=== PATIENT | male | born 1990 | race Caucasian/White ===

== ENCOUNTER 2018-10-30 17:13 | Emergency (ER) | payer MEDICAID, OTHER ==
[~2018-10-30 17:13] MED LIST: CODE118S5 PO; [UNRECOGNIZED DRUG - CODE] PO
--- NOTE | 2018-10-30 17:18 | ER Report ---
History and Physical Time Seen By MD: 17:18 HPI/ROS CHIEF COMPLAINT: Abdominal pain HISTORY OF PRESENT ILLNESS: This is a 28-year-old male presents to emergency room for abdominal pain. Patient states that last night after eating about half a pizza developed right-sided abdominal pain, took some ibuprofen and went to bed, woke up this morning with a little bit of discomfort in the right upper quadrant, seemed to improve through the morning hour after eating pizza again for lunch she had severe right upper quadrant pain presents with localized right upper quadrant pain. No dysuria. No fevers or chills. No nausea or vomiting. No chest pain or shortness breath. REVIEW OF SYSTEMS: Constitutional: No fever, no chills. Eyes: No discharge. ENT: No sore throat. Cardiovascular: No chest pain, no palpitations. Respiratory: No cough, no shortness of breath. Gastrointestinal: As above. Genitourinary: No hematuria. Musculoskeletal: No back pain. Skin: No rashes. Neurological: No headache. Allergies: Coded Allergies: lamotrigine (Verified Allergy, Unknown, rash, 11/10/16) Home Meds Active Scripts Amoxicillin/Pot Clav 875-125 Mg Tab (AUGMENTIN 875-125 TABLET) 1 Each Tablet, 1 TAB PO Q12H for 7 Days, #13 TAB Prov:MOSES LIVE SENIOR TELECOMMUNICATIONS TECHNICIAN-BC 10/30/18 Codeine/Promethazine Hcl (PROMETHAZINE-CODEINE SYRUP) 5 Ml Syrup, 10 ML PO Q6H for cough, #240 ML 0 Refills Prov:TEJA LR STRATEGIC INTELLIGENCE OFFICER 11/10/16 Reported Medications Levetiracetam (KEPPRA XR) 750 Mg Tab.er.24h, 1500 MG PO QDAY, TAB 04/26/16 Past Medical/Surgical History The patient has a past medical and surgical history of seizures. Reviewed Nurses Notes: Yes Hx Substance Use Disorder: No Hx Alcohol Use: No Constitutional Vital Sign - Last 24 Hours 10/30/18 10/30/18 10/30/18 10/30/18 17:13 17:20 17:20 17:28 Temp 98.3 Pulse 62 78 62 Resp 16 B/P (MAP) 125/85 (98) 125/85 Pulse Ox 92 96 O2 Delivery Room Air 10/30/18 10/30/18 10/30/1819 17:30 17:43 17:58 18:00 Pulse 65 61 B/P (MAP) 121/93 (102) 115/85 (95) Pulse Ox 91 92 10/30/18 10/30/18 10/30/18 10/30/18 18:05 18:25 18:30 18:45 Pulse ??? 62 53 B/P (MAP) 122/98 (106) Pulse Ox 92 98 97 10/30/18 10/30/18 10/30/18 10/30/18 19:00 19:05 19:25 19:30 Pulse 52 50 B/P (MAP) 122/82 (95) 113/71 (85) Pulse Ox 97 10/30/18 10/30/18 10/30/18 10/30/18 19:45 20:00 20:00 20:20 Pulse 48 55 52 57 B/P (MAP) 115/82 (93) Pulse Ox 97 95 97 10/30/18 10/30/18 10/30/18 10/30/18 20:30 20:40 21:00 21:20 Pulse 57 56 54 B/P (MAP) 125/93 (104) 127/84 (98) Pulse Ox 99 91 94 10/30/18 10/30/18 21:30 21:40 Pulse 56 B/P (MAP) 119/70 (86) Intake and Output 10/30/18 10/30/18 10/31/18 15:00 23:00 07:00 Intake Total 1000 ml Balance 1000 ml Physical Exam General Appearance: The patient is alert, has no immediate need for airway protection and no signs of toxicity, anxious. Eyes: Pupils equal and round no pallor or injection. ENT, Mouth: Mucous membranes are moist. Respiratory: There are no retractions, lungs are clear to auscultation. Cardiovascular: Regular rate and rhythm, no murmurs, clicks or rubs. Gastrointestinal: Right upper quadrant diffusely tender along the costal margin, positive Wheatley's sign, all other quadrants negative. No rebound tenderness. Neurological: Alert and oriented 4. Moving all cavities. Following all commands. No focal deficits. Skin: Warm and dry, no rashes. Musculoskeletal: Neck is supple non tender. Extremities are nontender, nonswollen and have full range of motion. DIFFERENTIAL DIAGNOSIS: After history and physical exam differential diagnosis was considered for abdominal pain including but not limited to appendicitis, cholecystitis, pancreatitis, myocardial infarction, gastritis and urinary tract infection. Medical Decision Making Data Points Result Diagram: 10/30/18 1729 10/30/18 1729 Laboratory Hematology Test 10/30/18 17:16 10/30/18 17:29 10/30/18 20:37 Urine Color Yellow Urine Clarity Clear Urine pH 5.0 pH (4.8-9.5) Urine Specific [place] 1.025 Urine Protein Negative mg/dL (NEGATIVE) Urine Glucose (UA) Negative mg/dL (NEGATIVE) Urine Ketones Negative mg/dL (NEGATIVE) Urine Blood Negative (NEGATIVE) Urine Nitrite Negative (NEGATIVE) Urine Bilirubin Negative (NEGATIVE) Urine Urobilinogen Negative mg/dL (0.2-1.9) Urine Leukocyte Esterase Negative (NEGATIVE) Urine RBC <1 /HPF (0-2/HPF) Urine WBC 1 /HPF (0-5/HPF) Urine Squamous Epithelial Cells Many /LPF (</=FEW) Urine Bacteria Negative /HPF (NONE-FEW) Urine Mucus None /HPF (NONE-FEW) Red Blood Count 4.67 M/uL (4.00-5.60) Mean Corpuscular Volume 95.8 fL (80.0-96.0) Mean Corpuscular Hemoglobin 32.4 pg (26.0-33.0) Mean Corpuscular Hemoglobin Concent 33.8 g/dL (32.0-36.0) Red Cell Distribution Width 13.2 % (11.5-14.5) Mean Platelet Volume 8.4 fL (7.2-11.1) Neutrophils (%) (Auto) 58.9 % (39.4-72.5) Lymphocytes (%) (Auto) 30.4 % (17.6-49.6) Monocytes (%) (Auto) 9.0 % (4.1-12.4) Eosinophils (%) (Auto) 1.2 % (0.4-6.7) Basophils (%) (Auto) 0.5 % (0.3-1.4) Nucleated RBC Relative Count (auto) 0.0 /100WBC Neutrophils # (Auto) 4.6 K/uL (2.0-7.4) Lymphocytes # (Auto) 2.4 K/uL (1.3-3.6) Monocytes # (Auto) 0.7 K/uL (0.3-1.0) Eosinophils # (Auto) 0.1 K/uL (0.0-0.5) Basophils # (Auto) 0.0 K/uL (0.0-0.1) Nucleated RBC Absolute Count (auto) 0.00 K/uL Sodium Level 144 mmol/L (137-145) Potassium Level 4.1 mmol/L (3.5-5.0) Chloride Level 106 mmol/L (98-107) Carbon Dioxide Level 27 mmol/L (22-30) Blood Urea Nitrogen 18 mg/dl (9-21) Creatinine 1.40 mg/dl (0.66-1.25) Glomerular Filtration Rate Calc 59.5 Random Glucose 101 mg/dl (75-110) Calcium Level 9.0 mg/dl (8.4-10.2) Total Bilirubin 0.3 mg/dl (0.2-1.3) Aspartate Amino Transf (AST/SGOT) 29 U/L (0-35) Alanine Aminotransferase (ALT/SGPT) 30 U/L (0-56) Alkaline Phosphatase 55 U/L (0-126) Total Protein 7.6 g/dl (6.3-8.2) Albumin 4.6 g/dl (3.5-5.0) Lipase 59 U/L (23-300) Troponin I < 0.012 ng/ml Chemistry Test 10/30/18 17:16 10/30/18 17:29 10/30/18 20:37 Urine Color Yellow Urine Clarity Clear Urine pH 5.0 pH (4.8-9.5) Urine Specific [place] 1.025 Urine Protein Negative mg/dL (NEGATIVE) Urine Glucose (UA) Negative mg/dL (NEGATIVE) Urine Ketones Negative mg/dL (NEGATIVE) Urine Blood Negative (NEGATIVE) Urine Nitrite Negative (NEGATIVE) Urine Bilirubin Negative (NEGATIVE) Urine Urobilinogen Negative mg/dL (0.2-1.9) Urine Leukocyte Esterase Negative (NEGATIVE) Urine RBC <1 /HPF (0-2/HPF) Urine WBC 1 /HPF (0-5/HPF) Urine Squamous Epithelial Cells Many /LPF (</=FEW) Urine Bacteria Negative /HPF (NONE-FEW) Urine Mucus None /HPF (NONE-FEW) White Blood Count 7.9 k/uL (4.5-11.0) Red Blood Count 4.67 M/uL (4.00-5.60) Hemoglobin 15.1 g/dL (14.0-18.0) Hematocrit 44.7 % (42.0-52.0) Mean Corpuscular Volume 95.8 fL (80.0-96.0) Mean Corpuscular Hemoglobin 32.4 pg (26.0-33.0) Mean Corpuscular Hemoglobin Concent 33.8 g/dL (32.0-36.0) Red Cell Distribution Width 13.2 % (11.5-14.5) Platelet Count 246 K/uL (150-450) Mean Platelet Volume 8.4 fL (7.2-11.1) Neutrophils (%) (Auto) 58.9 % (39.4-72.5) Lymphocytes (%) (Auto) 30.4 % (17.6-49.6) Monocytes (%) (Auto) 9.0 % (4.1-12.4) Eosinophils (%) (Auto) 1.2 % (0.4-6.7) Basophils (%) (Auto) 0.5 % (0.3-1.4) Nucleated RBC Relative Count (auto) 0.0 /100WBC Neutrophils # (Auto) 4.6 K/uL (2.0-7.4) Lymphocytes # (Auto) 2.4 K/uL (1.3-3.6) Monocytes # (Auto) 0.7 K/uL (0.3-1.0) Eosinophils # (Auto) 0.1 K/uL (0.0-0.5) Basophils # (Auto) 0.0 K/uL (0.0-0.1) Nucleated RBC Absolute Count (auto) 0.00 K/uL Glomerular Filtration Rate Calc 59.5 Calcium Level 9.0 mg/dl (8.4-10.2) Total Bilirubin 0.3 mg/dl (0.2-1.3) Aspartate Amino Transf (AST/SGOT) 29 U/L (0-35) Alanine Aminotransferase (ALT/SGPT) 30 U/L (0-56) Alkaline Phosphatase 55 U/L (0-126) Total Protein 7.6 g/dl (6.3-8.2) Albumin 4.6 g/dl (3.5-5.0) Lipase 59 U/L (23-300) Troponin I < 0.012 ng/ml Urinalysis Test 10/30/18 17:16 Urine Color Yellow Urine Clarity Clear Urine pH 5.0 pH (4.8-9.5) Urine Specific Zo[place] 1.025 Urine Protein Negative mg/dL (NEGATIVE) Urine Glucose (UA) Negative mg/dL (NEGATIVE) Urine Ketones Negative mg/dL (NEGATIVE) Urine Blood Negative (NEGATIVE) Urine Nitrite Negative (NEGATIVE) Urine Bilirubin Negative (NEGATIVE) Urine Urobilinogen Negative mg/dL (0.2-1.9) Urine Leukocyte Esterase Negative (NEGATIVE) Urine RBC <1 /HPF (0-2/HPF) Urine WBC 1 /HPF (0-5/HPF) Urine Squamous Epithelial Cells Many /LPF (</=FEW) Urine Bacteria Negative /HPF (NONE-FEW) Urine Mucus None /HPF (NONE-FEW) EKG/Imaging EKG Interpretation 12 lead EKG: Time of EKG 2040. Rhythm: Sinus bradycardia, ventricular rate 56 bpm. [place]: normal QRS: normal ST segments: No ST depression or elevation identified. [ ] Imaging Location: [facility] Patient: Rakan Rios : 1990 Visit/Account:[id number] Date of Sevice: 10/30/2018 Right upper abdomen ultrasound. HISTORY: Right upper quadrant pain. COMPARISON: None. The liver measures 13.9 cm in sagittal length. The liver is free of focal defects. The surface of the liver is smooth. The portal vein is patent. No intra or extrahepatic biliary dilatation. The gallbladder is unremarkable. The sonographic Wheatley's sign is mildly positive. The pancreas is unremarkable. The right kidney is normal in size. No hydronephrosis. No ascites. Portions of the a bdominal aorta and inferior vena cava are obscured. The spleen and left kidney were not included. The common bile duct measures 2.6 mm in greatest AP diameter. The pancreatic tail is partially obscured by bowel gas. IMPRESSION: Essentially negative right upper abdomen. Report Dictated By: Bismark Shane MD at 10/30/2018 6:40 PM Report E-Signed By: Bismark Shane MD at 10/30/2018 6:42 PM WSN:[id number] Location: [facility] Patient: Rakan Rios : 1990 Visit/Account:[id number] Date of Sev: 10/30/2018 EXAMINATION: CT abdomen and pelvis with contrast COMPARISON: Ultrasound same day. HISTORY: Abdominal pain which worsens with eating. PROCEDURE: Multiplanar contrast enhanced CT of the abdomen and pelvis with 75 mL intravenous Isovue 370. One of the following dose optimization techniques was utilized in the performance of this exam: Automated exposure control; adjustment of the mA and/or kV according to the patient's size; or use of an iterative reconstruction technique. Specific details can be referenced in the facility's radiology CT exam operational policy. FINDINGS: Visualized thorax: Mild volume loss. No acute findings. Liver: Negative. Gallbladder and biliary system: Negative Spleen: Negative. Pancreas: Negative. Adrenal glands: Negative. Kidneys and bladder: No renal mass or evidence of an obstructive uropathy. Urinary bladder is unremarkable. Vessels: Within normal limits. Bowel and mesentery: Stomach and small bowel are within normal limits. Dilated 10 mm appendix but no evidence of appendiceal inflammation. Small amount of stool in the colon. No bowel or mesenteric inflammation. Pelvic organs: Negative. Lymph nodes: No adenopathy. Free air/free fluid: None. Abdominal wall and osseous structures: Tiny fat-containing umbilical hernia. Osseous structures are intact. IMPRESSION: 1. Dilated 10 mm appendix but no other evidence of appendiceal inflammation. Correlation with any clinical evidence of appendicitis is recommended with surgical consultation as clinically indicated. 2. No other findings of acute disease in the abdomen or pelvis. Results were discussed with MOSES LIVE at 10/30/2018 7:37 PM. Report Dictated By: Chuck Odom MD at 10/30/2018 7:23 PM Report E-Signed By: Chuck Odom MD at 10/30/2018 7:39 PM WSN:[id number] ED Course/Re-evaluation Clinical Indication for ER IV: Hydration, IV Access ED Course The patient was admitted to room. A history and physical were obtained. Differential diagnoses were considered. An IV was started. A CBC, CMP were obtained. Laboratory studies unremarkable, creatinine 1.40. A 1 L normal saline bolus was given. 4 mg IV Zofran, 4 mg IV morphine, 0.5 mg IV Dilaudid. Negative gallbladder ultrasound, no acute pathology noted on the CT of the abdomen and pelvis, there was as noted a 10 mm appendix. I did review the results with the patient, I did tell the patient I don't have a clear information for his postprandial discomfort as the gallbladder with some was negative, negative CT of the abdomen and pelvis. I did contact Dr. Spencer was not below, we discussed the case, the patient will follow-up tomorrow with Dr. Spencer, started on antibiotics night. As I was discussing this with the patient he did note that he's had right scapular pain as well, as the pain is in the right costal area I did further evaluate with an EKG which was sinus bradycardia otherwise unremarkable, and a troponin normal. 10/30/2018 8:28:59 pm I did speak with Dr. Spencer, the general surgeon on-call, and he will see the patient tomorrow in his clinic for follow-up, I will also start the patient on Augmentin. I did review this with the patient's, he did state that he did forget to tell me during the exam that he has also had right scapular pain, I did suggest an EKG and troponin. Decision to Disposition Date: Oct 30, 2018 Decision to Disposition Time: 21:36 Depart Departure Latest Vital Signs Vital Signs Date Time Temp Pulse Resp B/P (MAP) Pulse Ox O2 Delivery O2 Flow Rate FiO2 10/30/18 21:40 56 10/30/18 21:30 119/70 (86) 10/30/18 21:20 94 10/30/18 17:20 98.3 16 Room Air Impression: Primary Impression: Abdominal pain Condition: Improved Disposition: HOME OR SELF-CARE Referrals: GARRETT SPENCER 1 Day New Scripts Amoxicillin/Pot Clav 875-125 Mg Tab (AUGMENTIN 875-125 TABLET) 1 Each Tablet 1 TAB PO Q12H for 7 Days, #13 TAB Prov: MOSES LIVE SENIOR TELECOMMUNICATIONS TECHNICIAN-BC 10/30/18 Patient Instructions: Abdominal Pain (ED) Additional Instructions: Please follow-up with Dr. Spencer, the general surgeon tomorrow morning as we discussed, his information is on the discharge paperwork, call his office at 8:00 in the morning. Ibuprofen or Tylenol as needed for pain. Drink plenty of water. Get plenty of rest. Take Augmentin as prescribed, the 1st dose was given in the emergency department, the rest of the prescription as her pharmacy. Return to the emergency department for any other concerns or worsening symptoms. Problem Qualifiers Primary Impression: Abdominal pain Abdominal location: right upper quadrant Qualified Codes: R10.11 - Right upper quadrant pain MOSES LIVEP-BC Oct 30, 2018 17:18
[2018-10-30] MEDS ORDERED: NS(*) 0.9% 1000 ML BAG 1,000 ML IV ONE (17:33)
[2018-10-30] MEDS ORDERED: MORPHINE 4 MG/ML SDV IVP ONE (17:35)
[2018-10-30] MEDS ORDERED: ONDANSETRON 4 MG/2 ML VIAL IVP ONE (17:35)
[2018-10-30 17:45] LABS: PLATELET COUNT, AUTOMATED 246 K/uL (150-450)
[2018-10-30] MEDS ORDERED: HYDROMORPHONE HCL 1 MG/ML SYRINGE IVP ONE (18:05)
--- NOTE | 2018-10-30 18:47 | RADIOLOGY IMAGING REPORT ---
FACILITY: [facility] - [place] PATIENT NAME: Rakan Rios : 1990 MR: [id number] V: [id number] EXAM DATE: ORDERING PHYSICIAN: MOSES LIVE TECHNOLOGIST: Location: [facility] Patient: Rakan Rios : 1990 Visit/Account:[id number] Date of Sevice: 10/30/2018 Right upper abdomen ultrasound. HISTORY: Right upper quadrant pain. COMPARISON: None. The liver measures 13.9 cm in sagittal length. The liver is free of focal defects. The surface of the liver is smooth. The portal vein is patent. No intra or extrahepatic biliary dilatation. The gallbla dder is unremarkable. The sonographic Wheatley's sign is mildly positive. The pancreas is unremarkable. The right kidney is normal in size. No hydronephrosis. No ascites. Portions of the abdominal aorta a nd inferior vena cava are obscured. The spleen and left kidney were not included. The common bile ramírez t measures 2.6 mm in greatest AP diameter. The pancreatic tail is partially obscured by bowel gas. IMPRESSION: Essentially negative right upper abdomen. Report Dictated By: Bismark Shane MD at 10/30/2018 6:40 PM Report E-Signed By: Bismark Shane MD at 10/30/2018 6:42 PM WSN:[id number]
[2018-10-30] MEDS ORDERED: IOPAMIDOL 76% 150 ML INFUS BTL 150 ML ONE (19:08)
--- NOTE | 2018-10-30 19:44 | RADIOLOGY IMAGING REPORT ---
FACILITY: [facility] - [place] PATIENT NAME: Rakan Rios : 1990 MR: [id number] V: [id number] EXAM DATE: ORDERING PHYSICIAN: MOSES LIVE TECHNOLOGIST: Location: [facility] Patient: Rakan Rios : 1990 Visit/Account:[id number] Date of Sevice: 10/30/2018 EXAMINATION: CT abdomen and pelvis with contrast COMPARISON: Ultrasound same day. HISTORY: Abdominal pain which worsens with eating. PROCEDURE: Multiplanar contrast enhanced CT of the abdomen and pelvis with 75 mL intravenous Isovue 3 70. One of the following dose optimization techniques was utilized in the performance of this exam: A utomated exposure control; adjustment of the mA and/or kV according to the patient's size; or use of an iterative reconstruction technique. Specific details can be referenced in the facility's radiolo gy CT exam operational policy. FINDINGS: Visualized thorax: Mild volume loss. No acute findings. Liver: Negative. Gallbladder and biliary system: Negative Spleen: Negative. Pancreas: Negative. Adrenal glands: Negative. Kidneys and bladder: No renal mass or evidence of an obstructive uropathy. Urinary bladder is unrema rkable. Vessels: Within normal limits. Bowel and mesentery: Stomach and small bowel are within normal limits. Dilated 10 mm appendix but no evidence of appendiceal inflammation. Small amount of stool in the colon. No bowel or mesenteric infl ammation. Pelvic organs: Negative. Lymph nodes: No adenopathy. Free air/free fluid: None. Abdominal wall and osseous structures: Tiny fat-containing umbilical hernia. Osseous structures are i ntact. IMPRESSION: 1. Dilated 10 mm appendix but no other evidence of appendiceal inflammation. Correlation with any cli nical evidence of appendicitis is recommended with surgical consultation as clinically indicated. 2. No other findings of acute disease in the abdomen or pelvis. Results were discussed with MOSES LIVE at 10/30/2018 7:37 PM. Report Dictated By: Chuck Odom MD at 10/30/2018 7:23 PM Report E-Signed By: Chuck Odom MD at 10/30/2018 7:39 PM WSN:[id number]
[2018-10-30] MEDS ORDERED: AMOX-559 PO (20:51)
[2018-10-30] MEDS ORDERED: AMOX/CLAV 875 MG TAB PO ONE (21:00)
[2018-10-30 21:30] VITALS: BP 119/70
--- NOTE | 2018-10-30 23:08 | EKG ---
FACILITY: [facility] - [place] PATIENT NAME: ELSI STEELE : [id number] MR: [id number] V: [id number] EXAM DATE: ORDERING PHYSICIAN: MOSES LIVE TECHNOLOGIST: MYCHAL Test Reason : RIGHT RIB PAIN Blood Pressure : / mmHG Vent. Rate : 056 BPM Atrial Rate : 056 BPM P-R Int : 180 ms QRS Dur : 086 ms QT Int : 420 ms P-R-T Axes : 041 034 005 degrees QTc Int : 405 ms Sinus bradycardia Otherwise normal ECG No previous ECGs available Confirmed by Ramiro Gomez ([id number]) on 10/31/2018 6:32:11 AM Referred By: Confirmed By:Ramiro Robles
== END 2018-10-30 21:53 | disposition home or self-care (01) ==
LOC: ER 17:26
DX: R10.11 Right upper quadrant pain (principal); R00.1 Bradycardia, unspecified
CPT/HCPCS: 74177; 76705; 81001; 83690; 84484; 85025; 93005; 96361; 96374; 96375; 99284; J1170; J2270; J2405; J7030; Q9967; 82040; 82247; 82310; 82374; 82435; 82565; 82947; 84075; 84132; 84155; 84295; 84450; 84460; 84520

== ENCOUNTER → 2018-10-31 | Outpatient (CLI) | payer OTHER ==
[~2018-10-31] MED LIST changes: +AMOX-559 PO
--- NOTE | 2018-10-31 14:47 | RADIOLOGY IMAGING REPORT ---
[place] [facility] [place] Rakan Rios : 1990 MR: [id number] V: [id number] EXAM DATE: ORDERING PHYSICIAN: GARRETT HARRIS TECHNOLOGIST: Location: [facility] - [place] Patient: Rakan Rios : 1990 Visit/Account:[id number] Date of Sevice: 10/31/2018 Chest with lateral, 2 views. HISTORY: Chest and rib pain. COMPARISON: None. The heart and mediastinum are unremarkable. Pulmonary vessels are unremarkable. The lungs are clear . The pleural surfaces are unremarkable. No pneumothorax. The ribs are unremarkable though partially obscured. Metal anchors are present in the right shoulder. 2 minimal wedge deformities are present at the thoracolumbar junction, probably developmental. IMPRESSION: No evidence of acute cardiopulmonary disease. Report Dictated By: Bismark Shane MD at 10/31/2018 2:42 PM Report E-Signed By: Bismark Shane MD at 10/31/2018 2:43 PM WSN:[id number]
== END ==
LOC: RAD 11:01
PROVIDERS: ATTEND Surgery
DX: R07.9 Chest pain, unspecified (principal)
CPT/HCPCS: 71046